=== PATIENT | female | born 1955 | race Caucasian/White ===

== ENCOUNTER 2017-03-22 10:36 | Outpatient (CLI) | payer OTHER ==
--- NOTE | 2017-03-22 13:04 | MMO ---
BILATERAL MAMMOGRAMS: Comparison is made to prior studies of 2015, 2014, and 2013. Interpreted with computer-aided detection. Heterogeneously dense glandular pattern. Nodular densities in both breasts have been previously lisandro ntified, some of which have disappeared and others which have occurred indicating changing cysts. O n today's exam, there is a nodular density in the inner left breast which was present previously con sistent with cyst. There is a new nodular density seen today in the posterior mid to slightly inner right breast. IMPRESSION: A new multilobulated nodular density in the posterior mid right breast. Recommend this be further e valuated with diagnostic exam and ultrasound. BI-RADS 0, further imaging right breast required. POS: [facility]
== END 2017-03-22 10:37 | disposition home or self-care (01) ==
LOC: SCSMAMMO 10:36
PROVIDERS: ATTEND Family Medicine
DX: Z12.31 Encounter for screening mammogram for malignant neoplasm of breast (principal); N63.10 Unspecified lump in the right breast, unspecified quadrant
CPT/HCPCS: 77067; G0202

== ENCOUNTER 2017-04-06 10:03 | Outpatient (CLI) | payer OTHER ==
--- NOTE | 2017-04-06 14:35 | ULT ---
RIGHT DIAGNOSTIC MAMMOGRAM RIGHT BREAST SONOGRAM LIMITED: Date: 04/06/17 HISTORY: Right breast nodule. Abnormal mammogram. COMPARISON: 03/22/17 and 10/23/14. FINDINGS: Scattered fibroglandular densities are again demonstrated. Multiple partially obscured oval and lobu lar isodense nodules of varying size are consistent with a benign process. Deep at the 3 o'clock pos ition of the right breast, a partially obscured oval nodule persists. Sonographic evaluation shows a well circumscribed, oval, hypoechoic nodule that is 1.2 cm in length x 0.6 cm depth. There is subtl e posterior acoustic enhancement. This may represent a small cyst or fibroadenoma. No aggressive soy racteristics are visible. IMPRESSION: BIRADS 2: Benign Finding(s) Suggest routine mammographic follow-up. POS: [facility]
== END 2017-04-06 10:04 | disposition home or self-care (01) ==
LOC: MAMMO 10:03
PROVIDERS: ATTEND Family Medicine
DX: R92.2 Inconclusive mammogram (principal)
CPT/HCPCS: G0206-RT

== ENCOUNTER 2018-10-03 12:43 | Outpatient (CLI) | payer OTHER ==
--- NOTE | 2018-10-03 13:26 | RAD ---
PA AND LATERAL VIEWS CHEST: Date: 10/03/18 HISTORY: Dyspnea. FINDINGS: Comparison made with exam of 11/09/17. The heart size is borderline. The lungs are expanded without focal areas of consolidation, pneumothor aces, or pleural effusions. Bones are osteopenic. IMPRESSION: No radiographic evidence of acute cardiopulmonary process. POS: [facility]
== END 2018-10-03 12:44 | disposition home or self-care (01) ==
LOC: RAD 12:43
PROVIDERS: ATTEND Internal Medicine Critical Care Medicine
DX: R06.00 Dyspnea, unspecified (principal)
CPT/HCPCS: 71046

== ENCOUNTER 2018-12-11 12:59 | Outpatient (CLI) | payer OTHER ==
--- NOTE | 2018-12-11 13:53 | CT ---
CT CHEST WITHOUT CONTRAST: 12/11/18 PROVIDED CLINICAL HISTORY: Screening, history of tobacco use, low dose protocol. FINDINGS: Comparison is made with the study dated 09/24/15. The heart, pericardium, and great vessels are suboptimally evaluated in the absence of IV contrast but demonstrate an unremarkable, unenhanced CT appearance with the exception of minimal vascular calc ification. There is no evidence for thoracic lymph node enlargement with limitations due to lack of I V contrast material. The airway appears patent and of normal caliber. No pleural fluid or pneumothora x apparent. The lungs are free of significant opacity. The visualized portions of the upper abdomen d emonstrate no acute abnormality. The osseous structures demonstrate no concerning lytic or blastic l esions. IMPRESSION: Lung RADS category 1 - negative. Annual screening recommended. POS: [facility]
== END 2018-12-11 13:00 | disposition home or self-care (01) ==
LOC: CT 12:59
PROVIDERS: ATTEND Internal Medicine Critical Care Medicine
DX: Z87.891 Personal history of nicotine dependence (principal)
CPT/HCPCS: G0297

== ENCOUNTER 2018-12-25 08:57 | Outpatient (CLI) | payer OTHER ==
--- NOTE | 2018-12-25 10:10 | MMO ---
Bilateral MAMMO Bilat Diag [facility]. CLINICAL HISTORY: Patient is 63 years old and is seen for diagnostic exam and nipple abnormality in both breasts. The patient has the following family history of breast cancer: cousin female, malignant (generic). The patient has no personal history of cancer. VIEWS: The views performed were: bilateral craniocaudal with tomosynthesis; bilateral mediolateral oblique with tomosynthesis; bilateral mediolateral with tomosynthesis; and left mediolateral oblique. FILMS COMPARED: The present examination has been compared to prior imaging studies performed at [facility] on 03/22/2017, at [facility] on 12/25/2018, and at [facility] on 04/06/2017. MAMMOGRAM FINDINGS: There are scattered fibroglandular densities. There are stable benign appearing calcifications seen in both breasts. No mass or architectural distortion is seen in region of patient's focal pain medial aspect of each breast. Ultrasound shows no mass or cystic lesion. There are no suspicious masses, suspicious calcifications, or new areas of architectural distortion. IMPRESSION: THERE IS NO MAMMOGRAPHIC EVIDENCE OF MALIGNANCY. PATIENT'S AREAS OF PAIN SHOULD BE FURTHER MANAGED CLINICALLY. A ROUTINE FOLLOW-UP MAMMOGRAM IN 1 YEAR IS RECOMMENDED. THE RESULTS OF THIS EXAM WERE SENT TO THE PATIENT. ACR BI-RADS Category 2 - Benign finding MAMMOGRAPHY NOTE: 1. A negative mammogram report should not delay a biopsy if a dominant of clinically suspicious mass is present. 2. Approximately 10% to 15% of breast cancers are not detected by mammography. 3. Adenosis and dense breasts may obscure an underlying neoplasm. Reported by: LUH MCKNIGHT MD Electonically Signed: [id number]
--- NOTE | 2018-12-25 10:31 | ULT ---
LIMITED ULTRASOUND RIGHT BREAST: HISTORY: Focal pain, medial right breast, as well as focal area of pain in the medial left breast. COMPARISON: Imaging of the breast parenchymal of the medial left breast. FINDINGS: Limited sonographic evaluation of the medial right breast was performed. No mass or cystic lesion is seen to correspond to the focal area of pain. No mammographic finding is seen in this region as wel l. IMPRESSION: 1. BI-RADS category 2-Benign findings. Routine annual mammographic screening is recommended. 2. The patient's focal area of pain should be further managed clinically. POS: OFF
--- NOTE | 2018-12-25 10:33 | ULT ---
LIMITED ULTRASOUND LEFT BREAST: HISTORY: Focal areas of pain in the medial aspect of each breast. FINDINGS: Multiple sonographic images of the medial left breast are obtained, with imaging obtained from the 8 o'clock to 10 o'clock positions. No mass or cystic lesion is identified. Imaging of the medial righ t breast is also performed, with the breast parenchyma demonstrating a similar appearance between the medial aspect of each breast. No mammographic finding is seen in the region of the focal area of pain in the left breast or in the right breast. IMPRESSION: 1. BI-RADS category 2-Benign findings. Routine annual mammographic screening is recommended. 2. The patient's focal area of pain in each breast should be further managed clinically. POS: OFF
== END 2018-12-25 08:58 | disposition home or self-care (01) ==
LOC: BICMAMMO 08:57
PROVIDERS: ATTEND Family Medicine
DX: N64.4 Mastodynia (principal); Z80.3 Family history of malignant neoplasm of breast
CPT/HCPCS: 77066; G0279

== ENCOUNTER 2019-12-20 13:31 | Outpatient (CLI) | payer OTHER ==
--- NOTE | 2019-12-20 14:41 | CT ---
CT Abdomen Pelvis W Con: 12/20/2019 12:00 AM CLINICAL INFORMATION: Upper and lower abdominal pain COMPARISON: None. TECHNIQUE: Multiple contiguous axial images were obtained and a CT of the abdomen and pelvis with IV contrast. Oral contrast was administered. Coronal and sagittal reformats were performed. FINDINGS: Lower Chest: within normal limits. Abdomen: Liver: within normal limits. Bile Ducts: Normal caliber. Gallbladder: Removed Pancreas: within normal limits. Spleen: within normal limits. Adrenals: within normal limits. Kidneys: within normal limits. Pelvis: Reproductive Organs: No pelvic masses. Ureters: within normal limits. Bladder: within normal limits. Peritoneum: No ascites or free air, no fluid collection. Bowel: Normal caliber. Mesentery and Retroperitoneum: Subcentimeter round lymph nodes are seen in the ileocecal region. No e nlarged mesenteric or retroperitoneal lymph nodes. Vessels: Normal. Abdominal Wall: within normal limits. Bones: Degenerative changes in the spine. IMPRESSION: Very small ileocecal lymph nodes are noted which could be secondary to mesenteric adenitis. Otherwise , there is no evidence of acute intra-abdominal/pelvic abnormality
== END 2019-12-20 13:32 | disposition home or self-care (01) ==
LOC: SCSCT 13:31
PROVIDERS: ATTEND Family Medicine
DX: R10.9 Unspecified abdominal pain (principal)
CPT/HCPCS: 36415; 74177; 80053; 85025; 87086

== ENCOUNTER 2020-02-11 13:27 | Outpatient (CLI) | payer MEDICARE, OTHER ==
--- NOTE | 2020-02-11 13:56 | CT ---
CT pulmonary lung scan without IV contrast INDICATION: Lung cancer screening protocol; history of nicotine dependence; quit smoking 7 years ago; smoked 20years COMPARISON: Prior CT pulmonary lung scan dated December 11, 2018 FINDINGS: LUNGS: Nodules\mass: There are numerous scattered areas of patchy groundglass airspace opacities seen within the right lower lobe, left lower lobe upper lobes. These are new from prior examination. There are a few foci of tree-in-bud nodularity within both lobes. Emphysema: Moderate Additional findings: There are thoracic aortic calcifications. No definite enlarged lymph nodes are g rossly evident. Mediastinum: No lymphadenopathy. Upper abdomen: The gallbladder surgically absent. Visualized adrenal glands are normal Osseous structures: No acute fracture or subluxation demonstrated. There is scattered degenerative an d osteoarthritic change present. IMPRESSION: Lung-RADS Category 3: Probably [id number] low-dose CT of the thorax in 6-8 weeks is recommende d to document clearance of the new numerous patchy groundglass airspace opacities suspicious for pneumonitis. There are additional foci of tree-in-bud nodularity within both lower lobes also suspici ous for an infectious or inflammatory bronchiolitis. Category S: Moderate emphysema, thoracic aortic calcifications; cholecystectomy Category C: Not applicable.
== END 2020-02-11 13:28 | disposition home or self-care (01) ==
LOC: CT 13:27
PROVIDERS: ATTEND Internal Medicine Critical Care Medicine
DX: Z12.2 Encounter for screening for malignant neoplasm of respiratory organs (principal); J43.9 Emphysema, unspecified; R91.1 Solitary pulmonary nodule; R91.8 Other nonspecific abnormal finding of lung field; I70.0 Atherosclerosis of aorta; Z90.49 Acquired absence of other specified parts of digestive tract; Z87.891 Personal history of nicotine dependence
CPT/HCPCS: G0297

== ENCOUNTER 2020-04-22 11:34 | Outpatient (CLI) | payer MEDICARE, OTHER ==
--- NOTE | 2020-04-22 12:01 | CT ---
CT OF THE THORAX WITHOUT IV CONTRAST INDICATION: Follow-up pneumonia COMPARISON: CT pulmonary lung scan dated February 11, 2020 FINDINGS: LUNGS: The patchy areas of peripheral groundglass and tree-in-bud nodular opacities affecting both vesna ngs have largely resolved. No residual suspicious reticulonodular or airspace opacities evident. There is persistent areas of subsegmental volume loss involving the lower lingula and medial right mi ddle lobe. Pleural spaces: Clear Lymph nodes: No pathologically enlarged lymph nodes. Heart and great vessels: The lack of IV contrast limits interrogation of the heart and great vessels. There is scattered thoracic and coronary artery calcifications. Upper abdomen: Cholecystectomy Osseous structures: There is scattered degenerative and osteoarthritic change present. IMPRESSION: Resolution of the previously seen patchy areas of peripheral groundglass nodular opacity and tree-in-bud nodular opacities affecting both lungs likely reflecting resolution of the bilateral pneumonitis. Mild residual areas of subsegmental volume loss remain within the lower lingul a and right middle lobe.
== END 2020-04-22 11:35 | disposition home or self-care (01) ==
LOC: BICCT 11:34
PROVIDERS: ATTEND Internal Medicine Critical Care Medicine
DX: J18.9 Pneumonia, unspecified organism (principal); R91.8 Other nonspecific abnormal finding of lung field
CPT/HCPCS: 71250

== ENCOUNTER 2021-01-25 13:42 | Outpatient (CLI) | payer MEDICARE, OTHER | END 2021-01-25 13:43 | disposition home or self-care (01) | LOC: SCSRAD 13:42 | PROVIDERS: ATTEND Internal Medicine Rheumatology | DX: M06.09 Rheumatoid arthritis without rheumatoid factor, multiple sites (principal); M18.11 Unilateral primary osteoarthritis of first carpometacarpal joint, right hand; M15.2 Bouchard's nodes (with arthropathy) ==

== ENCOUNTER 2021-04-26 10:14 | Outpatient (CLI) | payer MEDICARE, OTHER ==
[2021-04-26 14:56] LABS: Free T4 (Free Thyroxine) 1.3 ng/dL (0.70-1.48); Thyroid Stimulating Hormone 0.7293 uIU/mL (0.35-4.94)
== END 2021-04-26 10:15 | disposition home or self-care (01) ==
LOC: SCSLAB 10:14
PROVIDERS: ATTEND Family Medicine
DX: E03.9 Hypothyroidism, unspecified (principal)
CPT/HCPCS: 36415; 83516; 84439; 84443; 86376

== ENCOUNTER 2021-06-09 13:03 | Outpatient (CLI) | payer MEDICARE | END 2021-06-09 13:04 | disposition home or self-care (01) | LOC: RAD 13:03 | PROVIDERS: ATTEND Internal Medicine Critical Care Medicine | DX: R06.00 Dyspnea, unspecified (principal) | CPT/HCPCS: 71046 ==

== ENCOUNTER 2022-08-26 11:50 | Outpatient (CLI) | payer MEDICARE | END 2022-08-26 11:51 | disposition home or self-care (01) | LOC: BICMAMMO 11:50 | PROVIDERS: ATTEND Family Medicine | DX: Z12.31 Encounter for screening mammogram for malignant neoplasm of breast (principal); Z80.3 Family history of malignant neoplasm of breast | CPT/HCPCS: 77063; 77067 ==

== ENCOUNTER 2022-12-19 10:36 | Outpatient (CLI) | payer MEDICARE, OTHER | END 2022-12-19 10:37 | disposition home or self-care (01) | LOC: RAD 10:36 | PROVIDERS: ATTEND Internal Medicine Critical Care Medicine | DX: R06.00 Dyspnea, unspecified (principal) | CPT/HCPCS: 71046 ==

== ENCOUNTER 2023-12-27 09:59 | Outpatient (CLI) | payer MEDICARE, OTHER | END 2023-12-27 10:00 | disposition home or self-care (01) | LOC: BICMAMMO 09:59 | PROVIDERS: ATTEND Family Medicine | DX: Z12.31 Encounter for screening mammogram for malignant neoplasm of breast (principal); Z13.820 Encounter for screening for osteoporosis; Z78.0 Asymptomatic menopausal state; N63.10 Unspecified lump in the right breast, unspecified quadrant; M85.851 Other specified disorders of bone density and structure, right thigh; M85.852 Other specified disorders of bone density and structure, left thigh; Z80.3 Family history of malignant neoplasm of breast | CPT/HCPCS: 77063; 77067; 77080 ==

== ENCOUNTER 2025-01-15 12:17 | Outpatient (CLI) | payer MEDICARE, OTHER | END 2025-01-15 12:18 | disposition home or self-care (01) | LOC: BICMAMMO 12:17 | PROVIDERS: ATTEND Psychiatry & Neurology Neurology | DX: Z12.31 Encounter for screening mammogram for malignant neoplasm of breast (principal); M81.0 Age-related osteoporosis without current pathological fracture; M85.859 Other specified disorders of bone density and structure, unspecified thigh; Z80.3 Family history of malignant neoplasm of breast; Z98.890 Other specified postprocedural states | CPT/HCPCS: 77063; 77067; 77080 ==

== ENCOUNTER 2025-02-18 06:31 | Day surgery (SDC) | payer MEDICARE, OTHER ==
[2025-02-17 09:54] VITALS: BMI 29.0
[2025-02-18] MEDS ORDERED: Lidocaine 1% PF 5 ML VIAL ONE (07:07)
[2025-02-18] MEDS ORDERED: PROPOFOL 60 ML ONE (07:07)
[2025-02-18] MEDS ORDERED: PROPOFOL 20 ML ONE (08:18)
== END 2025-02-18 09:30 | disposition home or self-care (01) ==
LOC: SDC 06:31
PROVIDERS: ATTEND Internal Medicine
PROC: 0DJD8ZZ Inspection of Lower Intestinal Tract, Via Natural or Artificial Opening Endoscopic (ICD-10-PCS; principal; 2025-02-18)
PROC: 0DJ08ZZ Inspection of Upper Intestinal Tract, Via Natural or Artificial Opening Endoscopic (ICD-10-PCS; 2025-02-18)
DX: D50.9 Iron deficiency anemia, unspecified (principal); K64.4 Residual hemorrhoidal skin tags; K57.30 Diverticulosis of large intestine without perforation or abscess without bleeding; K64.8 Other hemorrhoids; K21.9 Gastro-esophageal reflux disease without esophagitis; F32.A Depression, unspecified; F41.9 Anxiety disorder, unspecified; Z87.891 Personal history of nicotine dependence; Z90.710 Acquired absence of both cervix and uterus; Z91.040 Latex allergy status; Z88.0 Allergy status to penicillin; Z91.048 Other nonmedicinal substance allergy status; Z79.899 Other long term (current) drug therapy
CPT/HCPCS: 43235; 45378; 93005; J2704; 93010

== ENCOUNTER 2025-03-10 14:18 | Outpatient (CLI) | payer MEDICARE, OTHER | END 2025-03-10 14:19 | disposition home or self-care (01) | LOC: RAD 14:18 | PROVIDERS: ATTEND Internal Medicine Critical Care Medicine | DX: R06.00 Dyspnea, unspecified (principal) | CPT/HCPCS: 71046 ==